=== PATIENT | female | born 1995 | race Caucasian/White ===

== ENCOUNTER 2019-12-12 11:07 | Observation (INO) | payer MEDICAID, SELFPAY ==
[2019-12-12] VITALS (9 sets, daily range): BP systolic 129–146; BP diastolic 83–96; PULSE 82–104; TEMP 36.2; BMI 44.7
--- NOTE | ~2019-12-12 | US_ITS ---
EXAMINATION: US OB >= 14 weeks Fetus DATE: 12/12/2019 13:12 INDICATION: No care. Third trimester. TECHNIQUE: Real-time ultrasound of the pelvis was performed. COMPARISON: None. FINDINGS: There is a single living fetus in vertex presentation. The placenta is anterior. heart rate is 135 beats per minute (bpm). The amniotic fluid volume is subjectively normal. The following biometric data were obtained: Biparietal diameter (BPD): 9.6 cm; head circumference (HC): 33.7 cm; abdominal circumference (AC): 35 .4 cm; femur length (FL): 7.6 cm. These measurements are concordant. Estimated weight is 3688 g +/- 553 g, which correlates with 46th percentile when 12/07/19 is use d as estimated date of delivery. As single measurements, these parameters are each equal to the following estimated gestational ages: BPD: 39 weeks 1 days. HC: 38 weeks 5 days. AC: 39 weeks 2 days. FL: 38 weeks 6 days. estimated gestational age based solely on measurements from this exam is 39 weeks 0 days +/- 2 weeks 5 days. The visualized portions of the spine are normal. The heart is normal. The stomach, kidneys, and bladd er are normal. The cerebral ventricles, cerebellum, cisterna magna, diaphragm, umbilical cord, and co rd insertion were not visualized. IMPRESSION: 1. Single living fetus in vertex presentation. 2. Estimated weight is 3688 g +/- 553 g, which correlates with 46th percentile when 12/07/19 is used as estimated date of delivery. 3. Normal visualized portions of the anatomic survey. Reviewed, dictated and finalized at location A. IMPRESSION: 1. Single living fetus in vertex presentation. 2. Estimated weight is 3688 g +/- 553 g, which correlates with 46th perc entile when 12/07/19 is used as estimated date of delivery. 3. Normal visualized portions of the anatomic survey.
[2019-12-12 12:26] LABS: Basophils Absolute Auto 0.1 K/mm3 (0.0-0.1); Basophils Percent Auto 0.3 % (0.2-1.2); Eosinophils Absolute Auto 0.1 K/mm3 (0-0.3); Eosinophils Percent Auto 0.6 % (0-4.4); Hematocrit 34.2 % (37.0-47.0); Hemoglobin 11.1 g/dL (12.0-15.0); Immature Granulocyte Absolute 0.19 K/mm3 (0.00-0.031); Immature Granulocyte Percent A 1.2 % (0-0.5); Lymphocytes Absolute Auto 2.17 K/mm3 (0.9-3.2); Lymphocytes Percent Auto 13.6 % (18.3-44.2); Mean Corpuscular HGB Conc 32.5 g/dl (32-36); Mean Corpuscular Hemoglobin 26.6 pg (26-34); Monocytes Absolute Auto 0.6 K/mm3 (0.1-0.6); Monocytes Percent Auto 3.9 % (2.6-8.5); Neutrophils Absolute Auto 12.8 K/mm3 (1.3-6.7); Neutrophils Percent Auto 80.4 % (45.5-73.1); Platelet Count Result 308 k/mm3 (150-375); Red Blood Count 4.17 M/mm3 (4.2-5.4); Red Cell Distribution Width 14.5 % (11.5-14.5); White Blood Count 15.9 K/mm3 (4.5-10.0)
[2019-12-12 12:41] LABS: Alanine Aminotransferase 12 U/L (4-35); Albumin Level 3.6 g/dL (3.5-5.1); Alkaline Phosphatase 150 U/L (38-126); Aspartate Amino Transferase 15 U/L (14-36); Bilirubin,Total 0.2 mg/dL (0.2-1.3); Blood Urea Nitrogen 9 mg/dL (7-17); Calcium 9.6 mg/dL (8.4-10.2); Carbon Dioxide 22 mmol/L (22-30); Chloride 103 mmol/L (98-107); Estimated Glomerular Filt Rate > 60; Glucose 120 mg/dL (65-105); Potassium 3.8 mmol/L (3.4-5.0); Sodium 133 mmol/L (137-145); Uric Acid 3.8 mg/dL (2.5-7.5)
--- NOTE | 2019-12-12 13:01 | OBADM ---
This patient, Reny Gerardo, admitted to the OB room Labor/Delivery/Recovery 103 for observation. Patient/family oriented to hospital policies and general routines including ID bracelet, bed and alarms, visiting hours, pain management, procedures, bathroom and other care routines, personal items, smoking policy, room service/diet, and visiting hours. Patient/Family are encouraged to report perceived risks to care and to ask questions if they do not understand what they are told or what they should do.
[2019-12-12 13:05] LABS: Amphetamine Screen Urine Negative (Negative); Barbiturate Screen Urine Negative (Negative); Benzodiazepines Screen Urine Negative (Negative); Cannabinoid Screen Urine Negative (Negative); Cocaine Screen Urine Negative (Negative); Methadone Screen Urine Negative (Negative); Opiate Screen Urine Negative (Negative); Phencyclidine Screen Urine Negative (Negative)
[2019-12-12 13:21] LABS: HIV 1/2 Ab P24 Ag Result Negative (Negative)
[2019-12-12 13:47] LABS: Hepatitis B Surface Antigen Negative (Negative); Rubella IgG Antibody 34.2 IU/ML
[2019-12-13 07:30] LABS: Rapid Plasma Reagin Non-Reactive (NonReactive)
--- NOTE | 2019-12-14 15:32 | PM.OBTRLD ---
OB - Triage/Final Diagnosis Visit Information Reason for evaluation: threatened labor Evaluation Laboratory results: Laboratory Tests 12/12/19 12/12/19 12/12/19 12:18 12:18 12:18 WBC 15.9 H RBC 4.17 L Hgb 11.1 L Hct 34.2 L MCV 82.0 MCH 26.6 MCHC 32.5 RDW 14.5 Plt Count 308 MPV 11.0 H Immature Gran % (Auto) 1.2 H Neut % (Auto) 80.4 H Lymph % (Auto) 13.6 L [place] % (Auto) 3.9 Eos % (Auto) 0.6 Baso % (Auto) 0.3 Lymph # (Auto) 2.17 [place] # (Auto) 0.6 Eos # (Auto) 0.1 Baso # (Auto) 0.1 Abs Immat Gran (auto) 0.19 H Absolute Neuts (auto) 12.8 H Absolute Nucleated RBC 0.0 Nucleated RBC % 0.0 Sodium 133 L Potassium 3.8 Chloride 103 Carbon Dioxide 22 BUN 9 Creatinine 0.60 L Estim Creat Clear Calc Not Reportable Estimated GFR > 60 Glucose 120 H Uric Acid 3.8 Calcium 9.6 Total Bilirubin 0.2 AST 15 ALT 12 Alkaline Phosphatase 150 H Total Protein 7.0 Albumin 3.6 Urine Opiates Screen Urine Methadone Screen Ur Barbiturates Screen Ur Phencyclidine Scrn Ur Amphetamine Screen U Benzodiazepines Scrn Urine Cocaine Screen U Cannabinoids Screen RPR Hep Bs Antigen Negative HIV 1&2 Ab/P24 Ag 4thGn Negative Rubella IgG Antibody 34.2 Blood Type Antibody Screen 12/12/19 12/12/19 12/12/19 12:18 12:18 12:34 WBC RBC Hgb Hct MCV MCH MCHC RDW Plt Count MPV Immature Gran % (Auto) Neut % (Auto) Lymph % (Auto) [place] % (Auto) Eos % (Auto) Baso % (Auto) Lymph # (Auto) [place] # (Auto) Eos # (Auto) Baso # (Auto) Abs Immat Gran (auto) Absolute Neuts (auto) Absolute Nucleated RBC Nucleated RBC % Sodium Potassium Chloride Carbon Dioxide BUN Creatinine Estim Creat Clear Calc Estimated GFR Glucose Uric Acid Calcium Total Bilirubin AST ALT Alkaline Phosphatase Total Protein Albumin Urine Opiates Screen Negative Urine Methadone Screen Negative Ur Barbiturates Screen Negative Ur Phencyclidine Scrn Negative Ur Amphetamine Screen Negative U Benzodiazepines Scrn Negative Urine Cocaine Screen Negative U Cannabinoids Screen Negative RPR Non-reactive Hep Bs Antigen HIV 1&2 Ab/P24 Ag 4thGn Rubella IgG Antibody Blood Type A Negative Antibody Screen Negative
--- NOTE | 2019-12-20 09:05 | PM.IMHP ---
H&P: HPI History of Present Illness Chief complaint: Contractions Narrative: Reny Gerardo is a 24 year old female no PNC. Admitted for induction of labor. LMP/US put patient at 40+ weeks. Review of Systems Review of Systems: All systems reviewed & are unremarkable except as noted in HPI and below PMFSH Past Medical History Medical History Hypertension Family History Family History Father Hypertension Family history of seizure disorder Other Cerebrovascular accident Diabetes mellitus Social History Social History Years smoked: 10 Smoking status: Current every day smoker Second hand tobacco smoke exposure: Yes Alcohol intake: never Substance use: never Gender identity (if verbalized by the patient): Female Spiritual care concerns: No Meds Home Medications and Allergies Allergies Allergy/AdvReac Type Severity Reaction Status Date / Time No Known Allergies Allergy Unverified 05/13/17 12:18 Exam Const: General: no acute distress Resp: Auscultation: clear to auscultation bilaterally Cardio: Rate: regular rate Rhythm: regular rhythm GI: GI Palp: Yes Soft to palpation Other: uterus 39cm. FHT 130-140 Assessment and Plan Assessment and plan (1) Term : Code(s): Z34.90 - Encounter for supervision of normal , unspecified, unspecified trimester Status: Acute (2) No care in current : Code(s): O09.30 - Supervision of with insufficient care, unspecified trimester Status: Acute Additional Plan induction of labor/expect .
== END 2019-12-12 14:50 | disposition home or self-care (01) ==
PROVIDERS: Admitting Provider Obstetrics & Gynecology; Visit Provider Obstetrics & Gynecology
DX: O47.1 False labor at or after 37 completed weeks of gestation (principal); Z3A.40 40 weeks gestation of pregnancy
CPT/HCPCS: 36415; 76805; 80053; 80307; 84550; 85025; 86592; 86703; 86762; 86850; 86900; 86901; 87086; 87088; 87340; G0378; G0379; G0432

== ENCOUNTER 2019-12-14 05:53 | Inpatient (IN) | payer MEDICAID, SELFPAY ==
[2019-12-14] VITALS (76 sets, daily range): BP systolic 91–166; BP diastolic 52–104; PULSE 69–102; RESP 14–16; TEMP 36.6–37; O2SAT 95–100; BMI 44.9
--- NOTE | 2019-12-14 06:40 | LDADM ---
This patient, Reny Gerardo, was admitted to Labor/Delivery/Recovery 104 on 12/14/19 at 05:53. Plans for labor, pain management and were discussed with patient. Patient/family oriented to hospital policies and general routines including ID bracelet, bed and alarms, visiting hours, pain management, procedures, bathroom and other care routines, personal items, smoking policy, room service/diet and guest tray routines, security routines, and visiting hours. Patient/Family are encouraged to report perceived risks to care and to ask questions if they do not understand what they are told or what they should do. See OBIX for further documentation.
[2019-12-14] MEDS: LACTATED RINGERS 1,000 ML 125 ML IV CONT ×3 (06:49→08:59)
[2019-12-14] MEDS: AMPICILLIN 2 GM/NS 100 ML 2 GM/100 ML BAG IVPB (06:49)
[2019-12-14] MEDS: OXYTOCIN 30 UNITS/NS 500 ML 30 UNITS/500 ML BAG IV CONT (06:49)
[2019-12-14 07:03] LABS: Basophils Absolute Auto 0.1 K/mm3 (0.0-0.1); Basophils Percent Auto 0.3 % (0.2-1.2); Eosinophils Absolute Auto 0.2 K/mm3 (0-0.3); Eosinophils Percent Auto 1.2 % (0-4.4); Hematocrit 34.9 % (37.0-47.0); Hemoglobin 11.1 g/dL (12.0-15.0); Immature Granulocyte Absolute 0.09 K/mm3 (0.00-0.031); Immature Granulocyte Percent A 0.6 % (0-0.5); Lymphocytes Absolute Auto 2.59 K/mm3 (0.9-3.2); Lymphocytes Percent Auto 16.6 % (18.3-44.2); Mean Corpuscular HGB Conc 31.8 g/dl (32-36); Mean Corpuscular Hemoglobin 26.5 pg (26-34); Mean Corpuscular Volume 83.3 fl (80-100); Mean Platelet Volume 11.5 fl (7.4-10.4); Monocytes Absolute Auto 1.1 K/mm3 (0.1-0.6); Monocytes Percent Auto 6.9 % (2.6-8.5); Neutrophils Absolute Auto 11.6 K/mm3 (1.3-6.7); Neutrophils Percent Auto 74.4 % (45.5-73.1); Platelet Count Result 312 k/mm3 (150-375); Red Blood Count 4.19 M/mm3 (4.2-5.4); Red Cell Distribution Width 14.7 % (11.5-14.5); White Blood Count 15.6 K/mm3 (4.5-10.0)
--- NOTE | 2019-12-14 09:07 | P.PNAN_ITS ---
Anes - Initial Pre Proc Eval Date/Time: 12/14/19 09:07 Surgeon: Parvez Viera MD Pre Op Diagnosis: Induction Patient Data Age: 24 Gender: F Height: 5 ft 1 in Weight: 108 kg Last Vital Signs Temp 36.7 C 12/14/19 08:59 Pulse 80 12/14/19 09:01 BP 114/52 L 12/14/19 09:01 Pulse Ox 97 12/14/19 09:05 Allergies Allergy/AdvReac Type Severity Reaction Status Date / Time No Known Allergies Allergy Unverified 05/13/17 12:18 Laboratory Tests 12/14/19 06:54 WBC 15.6 K/mm3 H K/mm3 (4.5-10.0) RBC 4.19 M/mm3 L M/mm3 (4.2-5.4) Hgb 11.1 g/dL L g/dL (12.0-15.0) Hct 34.9 % L % (37.0-47.0) MCV 83.3 fl fl (80-100) MCH 26.5 pg pg (26-34) MCHC 31.8 g/dl L g/dl (32-36) RDW 14.7 % H % (11.5-14.5) Plt Count 312 k/mm3 k/mm3 (150-375) MPV 11.5 fl H fl (7.4-10.4) Immature Gran % (Auto) 0.6 % H % (0-0.5) Neut % (Auto) 74.4 % H % (45.5-73.1) Lymph % (Auto) 16.6 % L % (18.3-44.2) [place] % (Auto) 6.9 % % (2.6-8.5) Eos % (Auto) 1.2 % % (0-4.4) Baso % (Auto) 0.3 % % (0.2-1.2) Lymph # (Auto) 2.59 K/mm3 K/mm3 (0.9-3.2) [place] # (Auto) 1.1 K/mm3 H K/mm3 (0.1-0.6) Eos # (Auto) 0.2 K/mm3 K/mm3 (0-0.3) Baso # (Auto) 0.1 K/mm3 K/mm3 (0.0-0.1) Abs Immat Gran (auto) 0.09 K/mm3 H K/mm3 (0.00-0.031) Absolute Neuts (auto) 11.6 K/mm3 H K/mm3 (1.3-6.7) Absolute Nucleated RBC 0.0 K/mm3 K/mm3 (0.0-0.012) Nucleated RBC % 0.0 % % (0.0-0.2) Patient hx anesthesia problems: none Family hx anesthesia problems: none PMFSH Past Medical History Medical History Hypertension Family History Family History Father Hypertension Family history of seizure disorder Other Cerebrovascular accident Diabetes mellitus Social History Social History Years smoked: 10 Smoking status: Current every day smoker Second hand tobacco smoke exposure: Yes Alcohol intake: never Substance use: never Gender identity (if verbalized by the patient): Female Spiritual care concerns: No Anes - Eval Final PreProcedure Day of Procedure 12/14/19 09:07 Patient weight: morbidly obese Heart: regular rate and rhythm Lungs: decreased breath sounds Neurological: alert and oriented ASA classification: III Emergent: no Anesthetic plan: proceed Anesthesia type and monitoring: regional epidural and standard monitoring Informed Consent: The patient's anesthetic plan and its attendant risks and benefits were discussed with the patient/family/POA. Questions were solicited and answers provided to the satisfaction of the patient/family/POA.
[2019-12-14] MEDS: AMPICILLIN 1 GM/NS 50 ML 1 GM/50 ML BAG IVPB (10:49)
--- NOTE | 2019-12-14 12:10 | PM.OBPRVD ---
OB - Delivery Note Procedure Delivery date: 12/14/19 events: No Care Route of delivery: Laceration description: None Specimen: Yes (placenta) Estimated blood loss (mL): 300 Anesthesia type: Epidural Disposition: floor Narrative: Patient prepped and draped in usual manner for this procedure. Maternal expulsive efforts readily delivered vertex which was section of naso and oropharynx. Rest of baby was readily delivered cord was clamped and cut placenta then delivered spontaneously. Uterus was well contracted. Cervix vagina and vulva were inspected no lacerations or tears no significant bleeding. This point procedure was considered terminated. Baby Weeks of gestation at delivery: 40 Infant gender: Female Weight (pounds): 7 Weight (ounces): 15 Placenta delivery description: Spontaneous score one minute: 8 score five minutes: 9
--- NOTE | 2019-12-14 12:13 | WPDHPUPDATE1 ---
History and Physical Update Update Date/Time: 12/14/19 12:13 History and Physical has been reviewed, including an updated exam of the patient. There are NO changes in the patient's condition. Risks, benefits, and alternatives have been discussed and questions answered. Patient agrees to proceed with procedure. The patient has had no significant care the labs have been drawn and ultrasound performed 2 days ago when she was on the obstetrical unit. Will be proceeding with elective induction of labor.
--- NOTE | 2019-12-14 12:14 | WPDOBADMIT ---
Obstetrics - Admit Note Admission Note: record reviewed. No pertinent additions to the history and/or any subsequent changes in the physical findings that are not consistent with the expected course of the were found. Additions to the history and/or subsequent changes in the physical findings follow. None.
[2019-12-14] MEDS: DOCUSATE SODIUM 100 MG CAPSULE PO (18:39)
[2019-12-14] MEDS: IBUPROFEN 600 MG TABLET PO (18:39)
[2019-12-15] MEDS: IBUPROFEN 600 MG TABLET PO ×2 (04:43→17:02)
[2019-12-15 05:30] LABS: Hematocrit 33.4 % (37.0-47.0); Hemoglobin 10.4 g/dL (12.0-15.0)
[2019-12-15 08:00] VITALS: BP 134/82; PULSE 69; RESP 18; TEMP 36.2; O2SAT 100
--- NOTE | 2019-12-15 09:40 | PM.OBDSVD ---
OB - DS: Summary OB Procedures : None OB Procedures Intrapartum: Spontaneous Vag Delivery OB Procedures: : None Time Spent with Patient Time attestation: Total time spent providing and/or coordinating discharge services: DS: Data Data Completed and Pending Labs on day of discharge: Labs from last 24 hours 12/15/19 12/15/19 04:49 04:49 Hgb 10.4 L Hct 33.4 L Blood Type A Negative Antibody Screen Negative Screen Negative Baby's Blood Type A pos Baby's BRAD Negative Doses of RhIg Required 1 Discharge Plan Discharge Discharging Clinician: Parvez Viera Patient Disposition: Home, Self-Care Activity: as tolerated Diet: as tolerated Patient Instructions: Antibiotic Form Stand Alone Forms: General Discharge Information Follow-up/Referrals: Parvez Viera MD [Physician] - 3 Weeks Date of admission: 12/14/19 05:53 Primary Care Provider: UNKNOWN,DOCTOR Admitting Provider: Parvez Viera Attending physician on admission: Parvez Viera
--- NOTE | 2019-12-15 10:50 | WPDANLDPN2 ---
Anes-Prog Note L&D Date/Time: 12/15/19 10:50 Comfortable throughout: labor and delivery Neuraxial method: epidural Epidural/Spinal procedure site: clean & non-tender Neuro status: Neuro function grossly intact. Cardiovascular status: normal Respiratory status: normal Airway patency: baseline Mental status: baseline Post-Op hydration status: normal Vital Signs: Last Vital Signs Temp 36.2 C L 12/15/19 08:00 Pulse 69 12/15/19 08:00 Resp 18 12/15/19 08:00 BP 134/82 12/15/19 08:00 Pulse Ox 100 12/15/19 08:00 Post-procedural complaints: none Patient feedback: Patient satisfied with anesthetic care.
--- NOTE | 2019-12-15 10:52 | PCCCNOTE ---
Per Care Coordination. Spoke with pt. over the phone to discuss discharge planning. Pt.'s current discharge plan is to return home with baby and FOB(Jitendra Frost). Pt. lives with FOB and her other two children who she has custody of. Pt. states that FOB is supportive and that they have no previous DCFS cases or any current cases open. Pt. states that she has everything she needs to safely bring baby home. She is not current with WIC but has been given resources regarding WIC. Pt. states that she has had one visit, but nursing states she has had no care. Pt. states that this is due to lack of insurance. She continues by stating that she currently has insurance and has received her insurance card. She states that she is current with [employer]. Pt. denies any discharge needs at this time. She confirms that she has a car seat and will bring it into the hospital for nursing to examine. No further need for Care Coordination services at this time.
[2019-12-15] MEDS: DOCUSATE SODIUM 100 MG CAPSULE PO (17:02)
[2019-12-15] MEDS: RHO(D) IMMUNE GLOBULIN 300 MCG SYRINGE IM (17:44)
[2019-12-15 19:30] VITALS: BP 125/75; PULSE 68; RESP 16; TEMP 36.7; O2SAT 100
[2019-12-16] MEDS: IBUPROFEN 600 MG TABLET PO (04:16)
[2019-12-16] MEDS: ACETAMINOPHEN 325 MG TABLET 650 MG PO (07:54)
[2019-12-16] MEDS: MULTIVIT/MIN/PREN/FOL AC/IRON TABLET 1 TAB PO (07:54)
[2019-12-16 08:50] VITALS: BP 138/83; PULSE 68; RESP 18; TEMP 37.3; O2SAT 99
[2019-12-19 11:14] VITALS: BP 131/75; PULSE 84; RESP 20; TEMP 36.7
--- NOTE | 2019-12-20 09:01 | P.DS_ITS ---
DS: Diagnosis Admitting Diagnosis Admitting Diagnosis: Encounter for supervision of normal , unspecified, third trimester OB - DS: Summary OB Procedures : None OB Procedures Intrapartum: Spontaneous Vag Delivery OB Procedures: : None Time Spent with Patient Time attestation: Total time spent providing and/or coordinating discharge services: DS: Data Data Completed and Pending Completed studies during hospitalization: Pending at discharge 12/15/19 11:30 Surgical [PTH] Routine Discharge Plan Discharge Consulting providers: Liu Link Discharging Clinician: Parvez Viera Patient Disposition: Home, Self-Care Activity: as tolerated Diet: as tolerated Discharge Instructions: Education: Mom and Baby Guide Given to: Mother Follow-Up: Call your delivering provider's office for an appointment to be seen in: 3 weeks Mom and baby should come to the [facility] for the follow-up appointment. Appointment Date/Time: December 19, 2019 at 11:00 am What to expect at your follow-up visit: Physical Assessment Call [phone] if you are unable to keep your appointment time. BREAST CARE: 1. Wear a snug supportive bra. 2. For engorgement discomfort: Bottle Feeding: A. May apply ice packs EPISIOTOMY/PERINEAL CARE: 1. Until bleeding stops, use your mariana bottle after urinating 2. Change your pad frequently throughout the day 3. You may take sitz baths several times a day (fill your bathtub with warm water and soak for 20 minutes.) Do NOT bathe in the water 4. No tub baths until seen by your physician - You may shower ACTIVITY: 1. Rest as much as possible. 2. Do not exercise or lift anything heavier than your baby (such as laundry or other children.) 3. Avoid stairs or driving as much as possible. 4. Do not put anything into the vagina. No douching, tampons, or sexual activity until seen by physician. NOTIFY PHYSICIAN IF YOU HAVE ANY QUESTIONS OR IF ANY OF THE FOLLOWING SYMPTOMS OCCUR: 1. If your episiotomy or incision becomes red, swollen, or more painful than what you have experienced in the hospital. 2. If your vaginal bleeding becomes foul smelling. 3. If your vaginal bleeding becomes more heavy than a period or if your bleeding changes from pink to bright red. However, you may pass an occasional walnut- sized clot once or twice for the first week . 4. If you experience a sharp, shooting pain in you calves. 5. If you discover a hard, reddened area on your breast or if you experience flu-like symptoms. DIET: 1. Eat regular, well-balanced meals. 2. Drink plenty of fluids daily. If , drink to thirst. Stand Alone Forms: General Discharge Information Follow-up/Referrals: Parvez Viera MD [Physician] - 3 Weeks Date of admission: 12/14/19 05:53 Primary Care Provider: UNKNOWN,DOCTOR Admitting Provider: Parvez Viera Discharge Date/Time: 12/16/19 13:35 Attending physician on admission: Parvez Viera
== END 2019-12-16 13:35 | disposition home or self-care (01) | DRG 560 ==
LOC: ANHLDR 05:55 → ANHOB2 14:53
PROVIDERS: Admitting Provider Obstetrics & Gynecology; Visit Provider Obstetrics & Gynecology
DX: O10.92 Unspecified pre-existing hypertension complicating childbirth (principal); Z37.0 Single live birth; Z3A.39 39 weeks gestation of pregnancy; O99.214 Obesity complicating childbirth; E66.01 Morbid (severe) obesity due to excess calories; O99.334 Smoking (tobacco) complicating childbirth; F17.210 Nicotine dependence, cigarettes, uncomplicated
CPT/HCPCS: 36415; 85014; 85018; 85025; 85461; 88307; 90384; A9270; J0290; J2590; J2790; J2795; J3010; J7120

== ENCOUNTER 2024-08-23 09:54 | Observation (INO) | payer OTHER, SELFPAY ==
--- NOTE | ~2024-08-23 | US_ITS ---
COMPLETE AND LIMITED MATERNAL ULTRASOUND (Duplex and color flow interrogation techniques used f or this exam.) Ordering provider: Judith Hussein History: . abd pain, early US for dating . Comparison: None Findings: BIOMETRY: BPD: 9.1 cm (30 weeks 5 days) HC: 33.5 cm (38 weeks 2 days) AC: 36.3 cm (40 weeks 2 days) FL: 7.3 cm (37 weeks 3 days) Number of fetuses: 1. lie: longitudinal. Spine to maternal left. Presentation: Vertex. heart rate: 153 bpm. Placenta: Anterior left. Distance from cervix: Out of range. Amniotic fluid index: Low measuring 5.5 cm. Fifth percentile is 7.3 cm. 95th percentile is 23.9 cm. L argest pocket measures 3.7 cm. Stomach: Normal. Bladder: Normal. 3 vessel cord: Normal. Cervix measures 3 cm. Estimated weight is 3641 gm. CI: 75.36 FL/BPD: 18.8 HC/AC: 0.92 FL/AC: 20.15 Impression: Single live fetus of 38 weeks and 1 day. LACI is September 05, 2024. Reviewed, dictated and finalized at location A. 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 LACI is September 05, 2024.
[2024-08-23 08:46] VITALS: BP 146/73; PULSE 76; RESP 20; TEMP 36.4; O2SAT 100
[2024-08-23 09:00] LABS: BEDSIDEPREGUCG Positive (Negative)
[2024-08-23 09:44] LABS: Basophils Percent Auto 0.4 % (0.2-1.2); Eosinophils Absolute Auto 0.1 K/mm3 (0-0.3); Eosinophils Percent Auto 0.9 % (0-4.4); Hematocrit 34.8 % (37.0-47.0); Hemoglobin 11.2 g/dL (12.0-15.0); Immature Granulocyte Absolute 0.04 K/mm3 (0.00-0.031); Immature Granulocyte Percent A 0.4 % (0-0.5); Lymphocytes Absolute Auto 2.21 K/mm3 (0.9-3.2); Lymphocytes Percent Auto 19.8 % (18.3-44.2); Mean Corpuscular HGB Conc 32.2 g/dl (32-36); Mean Corpuscular Hemoglobin 26.4 pg (26-34); Mean Corpuscular Volume 82.1 fl (80-100); Monocytes Absolute Auto 0.6 K/mm3 (0.1-0.6); Monocytes Percent Auto 5.3 % (2.6-8.5); Neutrophils Absolute Auto 8.2 K/mm3 (1.3-6.7); Neutrophils Percent Auto 73.2 % (45.5-73.1); Platelet Count Result 317 k/mm3 (150-375); Red Blood Count 4.24 M/mm3 (4.2-5.4); Red Cell Distribution Width 15.8 % (11.5-14.5); White Blood Count 11.2 K/mm3 (4.5-10.0)
[2024-08-23 09:53] LABS: Add Urine Microscopic? YES; Appearance Urine Clear (Clear); Bacteria Urine Rare /hpf; Bilirubin Urine Negative (Negative); Blood Urine Negative (Negative); Color Urine Yellow (Yellow); Glucose Urine UA Negative (Negative); Ketones Urine Negative (Negative); Leukocyte Esterase Ur Trace LEU/UL (Negative); Nitrate Urine Negative (Negative); Protein Urine 1+ mg/dL (Negative); RBC Urine 0-2 /hpf (0-2); Squamous Epithelial Cell Urine None Seen /hpf (Few); WBC Urine 0-5 /hpf (0-3); pH Urine 7.5 (5.0-9.0)
[2024-08-23 09:56] LABS: Alanine Aminotransferase 19 U/L (6-35); Albumin Level 3.6 g/dL (3.5-5.1); Alkaline Phosphatase 226 U/L (38-126); Anion Gap 3 mmol/L (4-12); Aspartate Amino Transferase 25 U/L (14-36); Bilirubin,Total 0.6 mg/dL (0.2-1.3); Blood Urea Nitrogen 7 mg/dL (7-17); Calcium 8.8 mg/dL (8.4-10.2); Carbon Dioxide 23 mmol/L (22-30); Chloride 107 mmol/L (98-107); Estimated CRCL calculation 128 ml/min; Estimated Glomerular Filt Rate > 60; Glucose 77 mg/dL (65-110); Lipase 99 U/L (23-300); Potassium 4.1 mmol/L (3.4-5.0); Sodium 133 mmol/L (137-145)
--- NOTE | 2024-08-23 09:58 | ED_ITS ---
HPI - Abdominal Pain General Chief Complaint: Abdominal Pain Stated Complaint: , abd pain Time Seen by Provider: 08/23/24 09:32 Source: patient Mode of arrival: ambulatory Limitations: no limitations History of Present Illness HPI narrative: This is a 28-year-old female that presents to the emergency department for pelvic pressure. Reports this has been ongoing over the last couple of days. She eventually reports that she is currently . She is unsure how far along she is. She does not have any insurance, so has not had any care. She has been feeling baby move for several months. This is not her 1st . Saw Dr. Lang for previous pregnancies. Denies vaginal bleeding or leakage of fluids. Related Data Allergies Allergy/AdvReac Type Severity Reaction Status Date / Time No Known Allergies Allergy Verified 08/23/24 08:50 Review of Systems 2 Review of Systems: CONSTITUTIONAL: Denies fever GASTROINTESTINAL: Reports pelvic pain All systems reviewed & are unremarkable except as noted in HPI and below PMFSH Past Medical History Medical History (Updated 08/23/24 @ 10:02 by Ann Orozco PA-C) Hypertension Family History Family History Father Hypertension Family history of seizure disorder Other Cerebrovascular accident Diabetes mellitus Social History Social History (Updated 08/23/24 @ 10:01 by Ann Orozco PA-C) Years smoked: 10 Smoking status: Current every day smoker Second hand tobacco smoke exposure: Yes Alcohol intake: never Substance use: current Substance use type: marijuana Gender identity (if verbalized by the patient): Female Spiritual care concerns: No Exam 2 Narrative: GENERAL: Well-appearing, well-nourished, and in no acute distress. HEAD: Normocephalic, atraumatic. EYES: EOMI. CHEST: Clear to auscultation. No respiratory distress. No wheezes rales or rhonchi HEART: Regular rate and rhythm. No murmur heard. Normal peripheral pulses. ABDOMEN: Gravid, nontender, normal active bowel sounds. EXTREMITIES: Normal range of motion. No edema. SKIN: Warm, dry, no rash. NEURO: No focal deficits. Alert and oriented x3. PSYCH: Normal mood and affect Procedures Other Procedure Procedure 1: Other Procedure: Bedside ultrasound shows likely near full term fetus with positive cardiac motion and activity Course Course Emergency Course: Patient will be transported to OB for further evaluation Vital Signs Vital signs: Vital Signs Temperature 97.5 F L 08/23/24 08:46 Pulse Rate 76 08/23/24 08:46 Respiratory Rate 20 08/23/24 08:46 Blood Pressure 146/73 H 08/23/24 08:46 Pulse Oximetry 100 08/23/24 08:46 Oxygen Delivery Room Air 08/23/24 08:46 Temperature 97.5 F L 08/23/24 08:46 Pulse Rate 76 08/23/24 08:46 Respiratory Rate 20 08/23/24 08:46 Blood Pressure 146/73 H 08/23/24 08:46 Pulse Oximetry 100 08/23/24 08:46 Oxygen Delivery Room Air 08/23/24 08:46 MDM - Abdominal Pain MDM Narrative Medical decision making narrative: Patient presents to emergency department for pelvic pressure. Later reported that she is currently , has had no care. Unsure how far along she is. Bedside ultrasound shows likely near full term fetus with positive cardiac motion and activity. Will be transported to OB for further evaluation and management Lab Data Attestation: I reviewed the patient's lab results. 08/23/24 09:18 08/23/24 09:18 Labs: Lab Results 08/23/24 08/23/24 Range/Units 08:57 09:18 WBC 11.2 H (4.5-10.0) K/mm3 RBC 4.24 (4.2-5.4) M/mm3 Hgb 11.2 L (12.0-15.0) g/dL Hct 34.8 L (37.0-47.0) % MCV 82.1 (80-100) fl MCH 26.4 (26-34) pg MCHC 32.2 (32-36) g/dl RDW 15.8 H (11.5-14.5) % Plt Count 317 (150-375) k/mm3 MPV 11.0 H (7.4-10.4) fl Immature Gran % (Auto) 0.4 (0-0.5) % Neut % (Auto) 73.2 H (45.5-73.1) % Lymph % (Auto) 19.8 (18.3-44.2) % [place] % (Auto) 5.3 (2.6-8.5) % Eos % (Auto) 0.9 (0-4.4) % Baso % (Auto) 0.4 (0.2-1.2) % Lymph # (Auto) 2.21 (0.9-3.2) K/mm3 [place] # (Auto) 0.6 (0.1-0.6) K/mm3 Eos # (Auto) 0.1 (0-0.3) K/mm3 Baso # (Auto) 0.0 (0.0-0.1) K/mm3 Abs Immat Gran (auto) 0.04 H (0.00-0.031) K/mm3 Absolute Neuts (auto) 8.2 H (1.3-6.7) K/mm3 Absolute Nucleated RBC 0.000 (0.0-0.012) K/mm3 Nucleated RBC % 0.0 (0.0-0.2) % Sodium 133 L (137-145) mmol/L Potassium 4.1 (3.4-5.0) mmol/L Chloride 107 (98-107) mmol/L Carbon Dioxide 23 (22-30) mmol/L Anion Gap 3 L (4-12) mmol/L BUN 7 (7-17) mg/dL Creatinine 0.57 L (0.7-1.0) mg/dL Estim Creat Clear Calc 128 ml/min Estimated GFR > 60 (59 - ) Glucose 77 (65-110) mg/dL Calcium 8.8 (8.4-10.2) mg/dL Total Bilirubin 0.6 (0.2-1.3) mg/dL AST 25 (14-36) U/L ALT 19 (6-35) U/L Alkaline Phosphatase 226 H (38-126) U/L Total Protein 7.0 (6.3-8.2) g/dL Albumin 3.6 (3.5-5.1) g/dL Lipase 99 (23-300) U/L Beta HCG, Quant Pending Urine Color Pending Urine Appearance Pending Urine pH Pending Ur Specific [place] Pending Urine Protein Pending Urine Glucose (UA) Pending Urine Ketones Pending Ur Blood (Man) Pending Urine Nitrate Pending Urine Bilirubin Pending Urine Urobilinogen Pending Leukocyte Esterase Rfl Pending POC Urine HCG, Qual Positive (Negative) Critical Care Time Critical Care Time Critical Care Time: No Discharge Plan Discharge Clinical Impression: No care in current Qualifiers: Trimester: third trimester Qualified Code(s): O09.33 - Supervision of with insufficient care, third trimester Patient Language: Maltese Follow-up/Referrals: PHYSICIAN,LIVING NURSE [Primary Care Provider] -
[2024-08-23 10:31] VITALS: BMI 37.9
--- NOTE | 2024-08-23 10:35 | OBADM ---
This patient, Reny Gerardo, admitted to the OB room 115 for observation. Patient/family oriented to hospital policies and general routines including ID bracelet, bed and alarms, visiting hours, pain management, procedures, bathroom and other care routines, personal items, smoking policy, room service/diet, and visiting hours. Patient/Family are encouraged to report perceived risks to care and to ask questions if they do not understand what they are told or what they should do.
[2024-08-23 10:45] VITALS: BP 133/81; PULSE 65
[2024-08-23 11:03] VITALS: BP 149/89; PULSE 72
[2024-08-23 11:16] VITALS: BP 144/90; PULSE 72
[2024-08-23 11:31] VITALS: BP 132/78; PULSE 76
[2024-08-23 13:40] LABS: Amphetamine Screen Urine Negative (Negative); Barbiturate Screen Urine Negative (Negative); Benzodiazepines Screen Urine Negative (Negative); Cannabinoid Screen Urine Positive (Negative); Cocaine Screen Urine Negative (Negative); Methadone Screen Urine Negative (Negative); Opiate Screen Urine Negative (Negative); Phencyclidine Screen Urine Negative (Negative)
[2024-08-23 14:01] LABS: Hepatitis B Surface Antigen Negative (Negative)
[2024-08-23 14:17] LABS: HIV 1/2 Ab P24 Ag Result Negative (Negative)
[2024-08-23 21:43] LABS: Rapid Plasma Reagin Non-Reactive (NonReactive)
--- NOTE | 2024-08-24 06:15 | P.PNOB_ITS ---
OB - Triage/Final Diagnosis Visit Information Reason for evaluation: threatened labor Comments/Additional reasons for admission: I have assessed the risk for this patient, Reny Gerardo, and determined that she would benefit from observation care. Evaluation Laboratory results: Laboratory Tests 08/23/24 08/23/24 08/23/24 08:57 09:18 12:54 WBC 11.2 H RBC 4.24 Hgb 11.2 L Hct 34.8 L MCV 82.1 MCH 26.4 MCHC 32.2 RDW 15.8 H Plt Count 317 MPV 11.0 H Immature Gran % (Auto) 0.4 Neut % (Auto) 73.2 H Lymph % (Auto) 19.8 [place] % (Auto) 5.3 Eos % (Auto) 0.9 Baso % (Auto) 0.4 Lymph # (Auto) 2.21 [place] # (Auto) 0.6 Eos # (Auto) 0.1 Baso # (Auto) 0.0 Abs Immat Gran (auto) 0.04 H Absolute Neuts (auto) 8.2 H Absolute Nucleated RBC 0.000 Nucleated RBC % 0.0 Sodium 133 L Potassium 4.1 Chloride 107 Carbon Dioxide 23 Anion Gap 3 L BUN 7 Creatinine 0.57 L Estim Creat Clear Calc 128 Estimated GFR > 60 Glucose 77 Calcium 8.8 Total Bilirubin 0.6 AST 25 ALT 19 Alkaline Phosphatase 226 H Total Protein 7.0 Albumin 3.6 Lipase 99 Beta HCG, Quant 28539.00 Urine Color Yellow Urine Appearance Clear Urine pH 7.5 Ur Specific [place] 1.010 Urine Protein 1+ H Urine Glucose (UA) Negative Urine Ketones Negative Ur Blood (Man) Negative Urine Nitrate Negative Urine Bilirubin Negative Urine Urobilinogen 1.0 Leukocyte Esterase Rfl Trace H Urine RBC 0-2 Urine WBC 0-5 Ur Squamous Epith Cells None seen Urine Bacteria Rare Urine Casts 3-5 POC Urine HCG, Qual Positive Urine Opiates Screen Urine Methadone Screen Ur Barbiturates Screen Ur Phencyclidine Scrn Ur Amphetamine Screen U Benzodiazepines Scrn Urine Cocaine Screen U Cannabinoids Screen RPR Hep Bs Antigen Negative HIV 1&2 Ab/P24 Ag 4thGn Negative Rubella IgG Antibody 26.0 Blood Type Antibody Screen 08/23/24 12:55 WBC RBC Hgb Hct MCV MCH MCHC RDW Plt Count MPV Immature Gran % (Auto) Neut % (Auto) Lymph % (Auto) [place] % (Auto) Eos % (Auto) Baso % (Auto) Lymph # (Auto) [place] # (Auto) Eos # (Auto) Baso # (Auto) Abs Immat Gran (auto) Absolute Neuts (auto) Absolute Nucleated RBC Nucleated RBC % Sodium Potassium Chloride Carbon Dioxide Anion Gap BUN Creatinine Estim Creat Clear Calc Estimated GFR Glucose Calcium Total Bilirubin AST ALT Alkaline Phosphatase Total Protein Albumin Lipase Beta HCG, Quant Urine Color Urine Appearance Urine pH Ur Specific [place] Urine Protein Urine Glucose (UA) Urine Ketones Ur Blood (Man) Urine Nitrate Urine Bilirubin Urine Urobilinogen Leukocyte Esterase Rfl Urine RBC Urine WBC Ur Squamous Epith Cells Urine Bacteria Urine Casts POC Urine HCG, Qual Urine Opiates Screen Negative Urine Methadone Screen Negative Ur Barbiturates Screen Negative Ur Phencyclidine Scrn Negative Ur Amphetamine Screen Negative U Benzodiazepines Scrn Negative Urine Cocaine Screen Negative U Cannabinoids Screen Positive A RPR Non-reactive Hep Bs Antigen HIV 1&2 Ab/P24 Ag 4thGn Rubella IgG Antibody Blood Type A Negative Antibody Screen Negative Vital signs: Vital Signs - 24 hr 08/23/24 08:46 08/23/24 10:31 08/23/24 10:45 Temperature 97.5 F L Pulse Rate 76 65 Respiratory Rate 20 Blood Pressure 146/73 H 133/81 Pulse Oximetry 100 Oxygen Delivery Room Air Room Air 08/23/24 11:03 08/23/24 11:16 08/23/24 11:31 Temperature Pulse Rate 72 72 76 Respiratory Rate Blood Pressure 149/89 H 144/90 H 132/78 Pulse Oximetry Oxygen Delivery
== END 2024-08-23 13:10 | disposition home or self-care (01) ==
LOC: ANHOBPP 12:44 → ANHLDR 13:55
PROVIDERS: Student in an Organized Health Care Education/Training Program; Admitting Provider Obstetrics & Gynecology; Visit Provider Obstetrics & Gynecology
DX: O47.1 False labor at or after 37 completed weeks of gestation (principal); O09.33 Supervision of pregnancy with insufficient antenatal care, third trimester; O10.913 Unspecified pre-existing hypertension complicating pregnancy, third trimester; O99.333 Smoking (tobacco) complicating pregnancy, third trimester; F17.200 Nicotine dependence, unspecified, uncomplicated; Z3A.38 38 weeks gestation of pregnancy
CPT/HCPCS: 36415; 76815; 80053; 80307; 81001; 81025; 83690; 84702; 85025; 86592; 86703; 86762; 86850; 86900; 86901; 87340; 99285; G0378; G0379; G0432

== ENCOUNTER 2024-08-25 16:18 | Outpatient (RCR) | payer OTHER, SELFPAY ==
--- NOTE | ~2024-08-25 | US_ITS ---
EXAMINATION: US OB limited w BPP DATE: 08/25/2024 17:46 POWDER LOADER INDICATION: oligohydramnios suspected TECHNIQUE: Real-time transabdominal obstetric ultrasound. FINDINGS: Single intrauterine gestation in vertex presentation. The placenta is anterior cardiac activity and movement is noted with a heart rate of 138 - 142 beats per mi nute. Biophysical profile: breathin of 2 movement: 2 of 2 tone: 2 of 2 Amniotic fluid pocket: 2 of 2 (NATALIE: 6.92 with normal values ranging from 6.5-26.3). The deepest vertical pocket measures 4.56 cm. Total score: 8 of 8 IMPRESSION: 1. Single intrauterine gestation in vertex presentation. 2: Total biophysical profile score of 8 out of 8. Reviewed, dictated and finalized at location A. ER LOADER
[2024-08-25 17:38] VITALS: BP 116/67; PULSE 86
== END 2024-10-14 16:30 | disposition home or self-care (01) ==
LOC: ANHOBOP 16:18
PROVIDERS: Visit Provider Obstetrics & Gynecology
DX: O41.03X0 Oligohydramnios, third trimester, not applicable or unspecified (principal); Z3A.38 38 weeks gestation of pregnancy
CPT/HCPCS: 59025; 76815; 76819

== ENCOUNTER 2024-08-28 05:53 | Inpatient (IN) | payer OTHER, SELFPAY ==
[2024-08-28] VITALS (117 sets, daily range): BP systolic 99–176; BP diastolic 40–94; PULSE 36–91; RESP 16; TEMP 36.2–37; O2SAT 94–100; BMI 37.9
--- NOTE | 2024-08-28 05:53 | LDADM ---
This patient, Reny Gerardo, was admitted to Labor/Delivery/Recovery 106 on 08/28/24 at 05:53. Plans for labor, pain management and were discussed with patient. Patient/family oriented to hospital policies and general routines including ID bracelet, bed and alarms, visiting hours, pain management, procedures, bathroom and other care routines, personal items, smoking policy, room service/diet and guest tray routines, security routines, and visiting hours. Patient/Family are encouraged to report perceived risks to care and to ask questions if they do not understand what they are told or what they should do. See OBIX for further documentation.
[2024-08-28 06:30] LABS: Basophils Absolute Auto 0.1 K/mm3 (0.0-0.1); Basophils Percent Auto 0.4 % (0.2-1.2); Eosinophils Absolute Auto 0.2 K/mm3 (0-0.3); Eosinophils Percent Auto 1.2 % (0-4.4); Hematocrit 34.4 % (37.0-47.0); Hemoglobin 11.2 g/dL (12.0-15.0); Immature Granulocyte Absolute 0.07 K/mm3 (0.00-0.031); Immature Granulocyte Percent A 0.6 % (0-0.5); Lymphocytes Absolute Auto 2.39 K/mm3 (0.9-3.2); Lymphocytes Percent Auto 19.9 % (18.3-44.2); Mean Corpuscular HGB Conc 32.6 g/dl (32-36); Mean Corpuscular Hemoglobin 26.9 pg (26-34); Mean Corpuscular Volume 82.7 fl (80-100); Mean Platelet Volume 11.1 fl (7.4-10.4); Monocytes Absolute Auto 0.7 K/mm3 (0.1-0.6); Monocytes Percent Auto 5.9 % (2.6-8.5); Neutrophils Absolute Auto 8.6 K/mm3 (1.3-6.7); Platelet Count Result 301 k/mm3 (150-375); Red Blood Count 4.16 M/mm3 (4.2-5.4); Red Cell Distribution Width 16.1 % (11.5-14.5)
[2024-08-28] MEDS: LACTATED RINGERS 1,000 ML 125 ML IV CONT ×2 (06:38→09:36)
[2024-08-28] MEDS: OXYTOCIN 30 UNITS/NS 500 ML 30 UNITS/500 ML BAG IV CONT (06:39)
[2024-08-28] MEDS: AMPICILLIN 2 GM/NS 100 ML 2 GM/100 ML BAG IVPB (06:39)
--- NOTE | 2024-08-28 07:00 | PC.NURSE ---
pt states that she is placing this baby up for adoption. Pt states that the adoption process has been taken care of. 0716: Alyssa from Adoption agency called and stated that the pt does not have anything arranged and will be by around 1100 am to meet and discuss with the pt.
--- NOTE | 2024-08-28 07:10 | P.PNAN_ITS ---
Anes - Eval Pre Procedure Procedure: labor epidural Date/Time: 08/28/24 07:10 Surgeon: ulisses Preop Diagnosis: pain during labor Pre Op Diagnosis: Leaking & Contractions Patient Data Age: 28 Gender: F Height: 1.55 m Weight: 91 kg Last Vital Signs Temp 36.6 C 08/28/24 06:58 Pulse 72 08/28/24 07:00 BP 136/78 08/28/24 07:00 Allergies Allergy/AdvReac Type Severity Reaction Status Date / Time No Known Allergies Allergy Verified 08/26/24 08:12 Home Medications ?Medication ?Instructions ?Recorded ?Confirmed ?Type No Home Medications 08/23/24 08/26/24 History Laboratory Tests 08/28/24 06:14 WBC 12.0 H K/mm3 (4.5-10.0) RBC 4.16 L M/mm3 (4.2-5.4) Hgb 11.2 L g/dL (12.0-15.0) Hct 34.4 L % (37.0-47.0) MCV 82.7 fl (80-100) MCH 26.9 pg (26-34) MCHC 32.6 g/dl (32-36) RDW 16.1 H % (11.5-14.5) Plt Count 301 k/mm3 (150-375) MPV 11.1 H fl (7.4-10.4) Immature Gran % (Auto) 0.6 H % (0-0.5) Neut % (Auto) 72.0 % (45.5-73.1) Lymph % (Auto) 19.9 % (18.3-44.2) [place] % (Auto) 5.9 % (2.6-8.5) Eos % (Auto) 1.2 % (0-4.4) Baso % (Auto) 0.4 % (0.2-1.2) Lymph # (Auto) 2.39 K/mm3 (0.9-3.2) [place] # (Auto) 0.7 H K/mm3 (0.1-0.6) Eos # (Auto) 0.2 K/mm3 (0-0.3) Baso # (Auto) 0.1 K/mm3 (0.0-0.1) Abs Immat Gran (auto) 0.07 H K/mm3 (0.00-0.031) Absolute Neuts (auto) 8.6 H K/mm3 (1.3-6.7) Absolute Nucleated RBC 0.000 K/mm3 (0.0-0.012) Nucleated RBC % 0.0 % (0.0-0.2) RPR Pending HIV 1&2 Ab/P24 Ag 4thGn Pending Patient hx anesthesia problems: none Family hx anesthesia problems: none Results Review: All pre-operative results and documents have been reviewed as part of the pre- operative evaluation. [facility] Past Medical History Medical History (Updated 08/28/24 @ 07:11 by Liz Ceballos CRNA) Seizures Scoliosis Hypertension Family History Family History Father Hypertension Family history of seizure disorder Other Cerebrovascular accident Diabetes mellitus Social History Social History (Updated 08/26/24 @ 08:14 by JULIOCESAR Schroeder) Years smoked: 4 Smoking status: Current every day smoker Tobacco type: cigarettes Second hand tobacco smoke exposure: Yes Alcohol intake: never Substance use: current Substance use type: marijuana Other substance usage details: 1 time a week Do You Feel Safe in your Home?: Yes Lack of Transportation: YES Lack of Food: Never True Current Housing: I Have Housing Concerned About Future Housing: No Difficulty Paying Gas/Electric Bills: No Difficulty Paying for Meds: No Currently Unemployed: No Education: High School Diploma/GED Difficulty w/ Childcare or Family Care: No Additional living arrangements comments: single Occupation/Education: other 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
--- NOTE | 2024-08-28 07:24 | PC.NURSE ---
during discussion with this nursery nurse pt states she recently had to quit her job and there are times when she doesn't have enough food. does not want to take advantage of the fact that she is having a baby, especially since she plans to give baby up for adoption. wants to be able to see baby after delivery, but is not sure how much contact she would like. discussed with pt that we will follow any wishes she would like during her stay and that she may change her mind about any contact at any time during her stay. pt states she has contacted [employer], ball warper tender Alyssa García, for adoption services.
[2024-08-28 07:39] LABS: HIV 1/2 Ab P24 Ag Result Negative (Negative)
[2024-08-28 07:59] LABS: OBXCEM ROM Plus Positive (Negative)
[2024-08-28 08:54] LABS: Rapid Plasma Reagin Non-Reactive (NonReactive)
--- NOTE | 2024-08-28 09:57 | WPDANLDPN2 ---
Anes-Prog Note L&D Date/Time: 08/28/24 09:57 Comfortable throughout: labor and delivery Neuraxial method: epidural Epidural/Spinal procedure site: clean & non-tender Neuro status: Neuro function grossly intact. Cardiovascular status: normal Respiratory status: normal Airway patency: baseline Mental status: baseline Post-Op hydration status: normal Vital Signs: Last Vital Signs Temp 97.2 F L 08/28/24 09:39 Pulse 57 L 08/28/24 09:54 BP 121/67 08/28/24 09:54 Pulse Ox 98 08/28/24 09:53 Pain score (VAS): 0 I/O: Intake & Output 08/27/24 08/28/24 08/28/24 23:59 07:59 15:59 Intake Total 370.8 Balance 370.8 Patient feedback: Patient satisfied with anesthetic care.
[2024-08-28] MEDS: AMPICILLIN 1 GM/NS 50 ML 1 GM/50 ML BAG IVPB (10:34)
--- NOTE | 2024-08-28 12:17 | WPDHPUPDATE1 ---
History and Physical Update Update Date/Time: 08/28/24 12:17 History and Physical has been reviewed, including an updated exam of the patient. There are NO changes in the patient's condition. Risks, benefits, and alternatives have been discussed and questions answered. Patient agrees to proceed with procedure.
--- NOTE | 2024-08-28 12:45 | PM.OBPRVD ---
OB - Vaginal Delivery Note Procedure Delivery date: 08/28/24 Events: No Care Induction method: None Delivery augmentation: Pitocin Delivery monitor: External FHT and Internal Uterine Route of delivery: Episiotomy description: None Laceration Description: None Specimen: Yes Quantitative Blood Loss (ml): 300 Anesthesia type: Epidural Disposition: Floor Complications: No immediate complications Narrative: Patient prepped and draped in the usual manner. Maternal expulsive efforts readily delivered vertex, nuchal cord was reduced thought difficulty. Rest of baby was delivered without difficulty, cord clamped and cut and placenta delivered spontaneously. Cervix vagina vulva were inspected with no lacerations or tears. Uterus was well contracted with minimal bleeding. Patient tolerated procedure well, immediate postop condition of mother baby both excellent. [place] Baby Gestational Age by Date: 38 gender: Female presentation: vertex position: Right Occiput Anterior Placenta delivery description: Spontaneous Cord Vessel Description: 3 Vessels, Nuchal Cord and Reduced
[2024-08-28] MEDS: OXYTOCIN 30 UNITS/NS 500 ML 30 UNITS/500 ML BAG 125 UNITS IV CONT (13:11)
--- NOTE | 2024-08-28 15:39 | PCCCNOTE ---
Per Care Coordination: Received consult for adoption and financial assistance. Met with pt. who has already chosen [facility], bilingual patient support caseworker is Amada Hatfield ([phone]). Amada is at bedside going over paperwork and questions. Pt. confirms she has three other children at home. Agreeable to adoption, signed Authorization to release to [facility] with [facility]el[facility] at discharge. Amada reports all of [facility] forms have been filled out and are completed as well. Adoptive parents, Cherelle and Oscar will be here shortly and will be staying the night with infant. Pt. is requesting to be discharged in the morning. RN aware of this and per OB likely will be okay to leave in morning. Amdaa reports she will be here in the morning as support to mom as well as available for baby discharge in the afternoon.
[2024-08-29 05:20] LABS: Hematocrit 32.7 % (37.0-47.0); Hemoglobin 10.3 g/dL (12.0-15.0)
[2024-08-29] MEDS: ACETAMINOPHEN 325 MG TABLET 650 MG PO (05:33)
[2024-08-29] MEDS: IBUPROFEN 600 MG TABLET PO (05:34)
[2024-08-29 07:25] VITALS: BP 140/78; PULSE 65; RESP 16; TEMP 36.1; O2SAT 100
--- NOTE | 2024-08-29 08:32 | P.DS_ITS ---
DS: Admitting Diagnosis Discharge Date 08/29/2024 Admitting Diagnosis DS: Discharge Diagnosis Discharge Diagnosis (1) , delivered: Code(s): O80 - Encounter for full-term uncomplicated delivery Status: Acute OB - DS: Summary OB Procedures : None OB Procedures Intrapartum: Spontaneous Vag Delivery OB Procedures: : None Peripartum Data Laceration Description: None Episiotomy description: None Time Spent with Patient Time attestation: Total time spent providing and/or coordinating discharge services: DS: Data Data Completed and Pending Pending studies at discharge: Pending at discharge 08/28/24 14:37 Surgical [PTH] Routine Labs on day of discharge: Labs from last 24 hours 08/29/24 08/28/24 04:59 06:14 Hgb 10.3 L Hct 32.7 L RPR Non-reactive Discharge Plan Discharge Discharging Clinician: Parvez Viera Patient Disposition: Home, Self-Care Activity: as tolerated and pelvic rest Diet: as tolerated Patient Instructions: Antibiotic Form Patient Language: Croatian Stand Alone Forms: General Discharge Information Follow-up/Referrals: Parvez Viera MD [Physician] - 3 Weeks Discharge Medications: New ibuprofen 600 mg Tablet 600 mg PO Q6H PRN (Reason: Cramping) Qty: 30 0RF No Action No Home Medications Date of admission: 08/28/24 05:53 Primary Care Provider: UNKNOWN,DOCTOR Admitting Provider: Parvez Viera Attending physician on admission: Parvez Viera Condition: Stable
--- NOTE | 2024-08-29 14:03 | PCCCNOTE ---
Met with pt. this morning. Pt. requesting discharge. Offered information for transportation services and she declines. Spoke with Dennise case therapist Amada who reports she will also be following with pt. and offering services and supports if needed to. pt. denies any other resources or needs. Discharging today
== END 2024-08-29 10:00 | disposition home or self-care (01) | DRG 560 ==
LOC: ANHLDR 06:10 → ANHOB2 15:08
PROVIDERS: Admitting Provider Obstetrics & Gynecology; Visit Provider Obstetrics & Gynecology
DX: O69.1XX0 Labor and delivery complicated by cord around neck, with compression, not applicable or unspecified (principal); Z3A.38 38 weeks gestation of pregnancy; Z37.0 Single live birth
CPT/HCPCS: 36415; 84112; 85014; 85018; 85025; 86592; 86703; 86850; 86900; 86901; 88307; A9270; G0432; J0290; J2590; J2795; J7120

== ENCOUNTER 2024-10-19 14:27 | Outpatient (CLI) | payer OTHER, SELFPAY ==
[2024-10-19 15:12] LABS: Hematocrit 38.5 % (37.0-47.0); Hemoglobin 12.3 g/dL (12.0-15.0); Mean Corpuscular HGB Conc 31.9 g/dl (32-36); Mean Corpuscular Hemoglobin 27.6 pg (26-34); Mean Corpuscular Volume 86.3 fl (80-100); Mean Platelet Volume 10.9 fl (7.4-10.4); Platelet Count Result 299 k/mm3 (150-375); Red Blood Count 4.46 M/mm3 (4.2-5.4)
--- OUTSIDE RECORDS SUMMARY | 2024-10-19 16:17 | XMS_ITS | Clinical Summary ---
Author Organization [facility] A [facility]ir[facility] - 2022 Address [address] [facility] 3[address] [place] [address] Phone Care Team Providers Care School Clerk Name Role Phone Unavailable Primary Care Provider Unavailabl e Allergies No known active allergies Medications ibuprofen (MOTRIN) 600 mg tablet Take 1 Tablet (600 mg) by mouth every 6 hours as needed for Pain, Mild. 20 Tablet 2 Active predniSONE (DELTASONE) 20 mg tablet Take 2 Tablets (40 mg) by mouth daily with breakfast. 12 Tablet 3 Active albuterol sulfate HFA 90 mcg/actuation aerosol inhaler Take 2 Puffs by inhalation every 6 hours as needed for Wheezing or Shortness of Breath. 8.5 Gram 3 Active Encounters Date Type Department Care Team Description 09/13/2024 External Device Data ST[facility] ABSTRACTION Provider, Abstract from Last 3 Months Social History Tobacco Use Types Packs/Day Years Used Date Smoking Tobacco: Never Smokeless Tobacco: Never Feeling Safe Answer Date Recorded Are you in a relationship wi th someone who hurts you emotionally and/or physically? No 07/22/2023 Comments No Sex and Gender Information Value Date Recorded Sex Assigned at Not on file Legal Sex Female 12:13 PM CDT Gender Identity Not on file Sexual Orientation Not on file Last Filed Vital Signs Vital Sign Reading Time Taken Comments Blood Pressure 148/98 07/22/2023 10:00 PM IMPROVEMENT MANAGER Pulse 99 07/22/2023 9:07 PM IMPROVEMENT MANAGER Temperature 36.2 C (97.1 F) 07/22/2023 7:21 PM IMPROVEMENT MANAGER Respiratory Rate 18 07/22/2023 10:00 PM IMPROVEMENT MANAGER Oxygen Saturation 99% 07/22/2023 10:00 PM IMPROVEMENT MANAGER Inhaled Oxygen Concentration - - Weight 102.1 kg (225 lb) 07/22/2023 7:21 PM IMPROVEMENT MANAGER Height 154.9 cm (5' 1 ) 07/22/2023 7:21 PM IMPROVEMENT MANAGER Body Mass Index 42.51 07/22/2023 7:21 PM IMPROVEMENT MANAGER Plan of Treatment Health Maintenance Due Date Last Done Comments DTAP/TDAP/TD VACCINES (1 - Tdap) 2014 HEPATITIS B VACCINES (1 of 3 - 19+ 3-dose series) 2014 CERVICAL CANCER SCREENING 2016 INFLUENZA VACCINE (#1) 2024 HPV VACCINES Aged Out No longer eligi ble based on patient's age to complete this topic PNEUMOCOCCAL VACCINE 0-49 YEARS Aged Out No longer eligible based on patient's age to complete this topic Insurance [facility] MEDICAID
--- OUTSIDE RECORDS SUMMARY | 2024-10-19 16:17 | XMS_ITS | Clinical Summary ---
Author Organization [facility] Address [address] [place] [address] Care Team Providers Care Multimedia Assistant Name Role Phone None, Provider MD Primary Care Provider Unavaila ble Allergies No known active allergies Medications No known medications Active Problems No known active problems Social History Tobacco Use Types Packs/Day Years Used Date Smoking Tobacco: Every Day Smokeless Tobacco: Never Alcohol Use Standard Drinks/Week Comments Never 0 (1 standard drink = 0.6 oz pur e alcohol) Comments No Sex and Gender Information Value Date Recorded Sex Assigned at Not on file Legal Sex Female 11:05 PM LEVER MILLER Gender Identity Female 10/17/2021 8:38 AM LEVER MILLER Sexual Orientation Not on file Last Filed Vital Signs Vital Sign Reading Time Taken Comments Blood Pressure 157/99 10/16/2021 7:51 PM LEVER MILLER Pulse 112 10/16/2021 7:51 PM LEVER MILLER Temperature 37.1 C (98.7 F) 10/16/2021 7:51 PM LEVER MILLER Respiratory Rate 22 10/16/2021 7:51 PM LEVER MILLER Oxygen Saturation 100% 10/16/2021 7:51 PM LEVER MILLER Inhaled Oxygen Concentration - - Weight 102.1 kg (225 lb) 10/16/2021 7:51 PM LEVER MILLER Height 154.9 cm (5' 1 ) 10/16/2021 7:51 PM LEVER MILLER Body Mass Index 42.51 10/16/2021 7:51 PM LEVER MILLER Plan of Treatment Health Maintenance Due Date Last Done Comments Cervical Cancer Screening Pap Smear (Age 21 to 29) Every 3 Years 1995 Cervical Cancer Screening 1995 Annual Physical 1998 Pneumococcal Vaccine: Pediatrics (0 to 5 Years) and At-Risk Patients (6 to 64 Years) (1 of 2 - PCV) 2001 HPV Vaccines (2 - 2-dose series) 10/02/2010 04/01/2010 Hepatitis C 2013 COVID-19 Vaccine ( - 2023- season) 2024 DTaP, Tdap and Td Vaccines (5 - Td or Tdap) 05/13/2024 05/13/2014, 04/01/2010, 03/25/2000, Additional history exists Influenza Adult (#1) 2024 05/13/2014 Hepatitis B Vaccines Completed 01/17/1997, 1995, 1995 Meningococcal Vaccine Aged Out 04/01/2010 No ruthann martine eligible based on patient's age to complete this topic Meningococcal B Vaccine Aged Out No l onger eligible based on patient's age to complete this topic RSV Immunizations Under 20 Months Aged Out No longer eligible based on patient's age to complete this topic Insurance Care Teams Multimedia Assistant Relationship Specialty Start Date End Date None, Provider, PCP - General 10/16/21
--- OUTSIDE RECORDS SUMMARY | 2024-10-19 16:17 | XMS_ITS | Encounter Summary ---
Author Organization [facility] Address [address] [place] [id number] Care Team Providers Care Privacy Manager Name Role Phone None, Provider Primary Care Provider Unavaila ble Encounter Details Date Type Department Care Team (Late st Contact Info) Description 01/22/2019 Abstract SFL CONVERSION [address] [place] [address] , Generic Conversion, Social History Tobacco Use Types Packs/Day Years Used Date Smoking Tobacco: Never Assessed Comments Unknown Sex and Gender Information Value Date Recorded Sex Assigned at Not on file Legal Sex Female 11:05 PM TRIP FOLLOWER Gender Identity Female 10/17/2021 8:38 AM TRIP FOLLOWER Sexual Orientation Not on file documented as of this encounter Plan of Treatment Not on file documented as of this encounter Visit Diagnoses Not on filedocumented in this encounter Care Teams Privacy Manager Relationship Specialty Start Date End Date None, Provider, PCP - General 10/16/21 documented as of this encounter
--- OUTSIDE RECORDS SUMMARY | 2024-10-19 16:17 | XMS_ITS | Continuity of Care Document ---
Author Organization [facility] Address [address] [place] [address] Phone Care Team Providers Care Medical Staffing Coordinator Name Role Phone Unavailable Unavailable Unavailable Advance Directives Directive Yes / No Effective Date File Name No Information Encounters Encounter Description Practice Location Reason(s) For Visit Diagnoses Date Provider Providers Copied on Encounter [facility], [address] [facility], [place], [place], [id number], tel:[phone] [facility] No Information 7 No Information Referring Provider: CARMEN GOMEZ, [address] [place] [address],[place], [address]. tel:[phone] Family History Family Member Type Diagnosis Age At Onset No Information Payers Payer name Insurance type Covered democrat ID Authoriza tibrian(s) [facility] IN[facility]MN[facility] [id number] Social History Type Description Quantity Date Captured Comments Sex Female Smoking Status No Information Chief Complaint And Reason For Visit No Information History Of Present Illness Encounter Date Complaint History Of Prese nt Illness No Information Instructions Date Instruction Additional Infor mation No Information Assessments Type Assessment Date No Information
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
== END 2024-10-19 14:28 | disposition home or self-care (01) ==
LOC: ANHSURGERY 14:33
PROVIDERS: Visit Provider Obstetrics & Gynecology
DX: Z30.2 Encounter for sterilization (principal)
CPT/HCPCS: 36415; 85027

== ENCOUNTER 2024-10-27 00:46 | Day surgery (SDC) | payer OTHER, SELFPAY ==
[2024-10-14 13:25] VITALS: BMI 35.2
--- NOTE | 2024-10-14 13:51 | PC.NURSE ---
Report to the Outpatient Waiting Room, entrance under the green pavilion located off [facility], at time 6:15AM on date 10/27/2024. Planned Procedure Time: 8:15AM.? Time changes happen often and if your time is changed the preop area will call you the afternoon before. - You and your visitor will be asked to self-screen and do not enter if you have any COVID symptoms. Please call surgeon if you need to reschedule. - A mask is optional within the hospital at this time. Patients may have clear liquids (water, carbonated beverages, clear teas, apple juice) until 3 hours prior to surgery with a maximum of 20 ounces. - No food from midnight until time of surgery and no smoking, or chewing tobacco (or any form of nicotine). No chewing gum, candy or mints. Take only the following medications with a SIP of water on the morning of surgery: N/A DO NOT STOP ANY OF YOUR OTHER PRESCRIPTION MEDICATIONS PRIOR TO SURGERY EXCEPT THE FOLLOWING Hold all vitamins and supplements for 3 days per anesthesiologist. Medications to discontinue per physician: N/A Please no make-up, nail tajik, hairspray, perfume, deodorant, or body powder the day of surgery.? No jewelry (including any body piercings) or valuables the day of surgery, leave them at home.? Please take a shower or bath the night before, or the morning of, surgery with an antibacterial soap.? Wear comfortable, loose fitting clothing.? Children are encouraged to wear pajamas. - Jewelry must be removed prior to entering the operating room.? Rings and piercings that are not removed may be cut off. - The hospital will not accept responsibility for valuables.? - Please leave all valuables, including medications, at home the day of surgery. If you are going home after surgery, a licensed tow truck driver must drive you home.? - NO public transportation without another adult if you receive anesthesia. - We recommend that an adult stay with you for 24 hours following discharge. - We also recommend that you do not drive, make important decision, drink alcoholic beverages, or take any drugs that were not prescribed by your health care provider for at least 24 hours after your discharge time. Follow any additional instructions given to you from your surgeon. Telephone instructions given to patient and asked if any additional questions and then verbalized understanding. Patient advised to call surgeon office or pre surgery nurse liaison [phone] if any additional questions.
--- NOTE | 2024-10-25 10:49 | PM.IMHP ---
H&P: HPI History of Present Illness Date/Time: 10/25/24 10:49 29-year-old female 004 presents for bilateral salpingectomy. We have discussed nonsurgical and nonpermanent methods of contraception which she declines. We have also discussed the permanence failure rate increased risk of ectopic and regret with again good understanding and consent obtained. Chief Complaint: Desires sterilization Review of Systems Review of Systems: All systems reviewed & are unremarkable except as noted in HPI and below PMFSH Past Medical History Medical History Seizures Scoliosis Hypertension Family History Family History Father Hypertension Family history of seizure disorder Other Cerebrovascular accident Diabetes mellitus Social History Social History Years smoked: 4 Smoking status: Current every day smoker Tobacco type: cigarettes Second hand tobacco smoke exposure: Yes Alcohol intake: former Substance use: current Substance use type: marijuana Other substance usage details: 1 time a week Last use: 10/12/2024 Do You Feel Safe in your Home?: Yes Lack of Transportation: YES Lack of Food: Sometimes True Current Housing: I Have Housing Concerned About Future Housing: No Difficulty Paying Gas/Electric Bills: No Difficulty Paying for Meds: No Currently Unemployed: No Education: High School Diploma/GED Difficulty w/ Childcare or Family Care: No Living arrangements: with family Additional living arrangements comments: single Occupation/Education: other 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 Gender identity (if verbalized by the patient): Female Sexual Orientation (if Verbalized by the Patient): Straight or Heterosexual Spiritual care concerns: No Meds Home Medications and Allergies Home Medications ?Medication ?Instructions ?Recorded ?Confirmed ?Type No Home Medications 08/23/24 10/14/24 History Allergies Allergy/AdvReac Type Severity Reaction Status Date / Time No Known Allergies Allergy Verified 10/14/24 13:24 Exam Const: General: cooperative and healthy appearing Resp: Effort & Inspection: normal respiratory effort Auscultation: clear to auscultation bilaterally Cardio: Rate: regular rate Rhythm: regular rhythm GI: Inspection: normal to inspection Auscultation: normal bowel sounds : External Female Exam: normal external appearance Speculum Exam - Vagina: normal appearance of the vagina Speculum Exam - Cervix: normal appearance of the cervix Bimanual exam- vagina & uterus: normal bimanual exam Bimanual Exam- Adnexa, other: normal adnexae Assessment and Plan Assessment and plan (1) Encounter for female sterilization procedure: Code(s): Z30.2 - Encounter for sterilization Status: Acute Assessment and Plan: proceed with laparoscopic bilateral salpingectomy
[2024-10-27] VITALS (11 sets, daily range): BP systolic 103–128; BP diastolic 57–76; PULSE 54–88; RESP 12–30; TEMP 36.4–36.6; O2SAT 92–100
--- OUTSIDE RECORDS SUMMARY | 2024-10-27 00:49 | XMS_ITS | Clinical Summary ---
Author Organization [facility] - 2022 Address [address] [facility] [address] [place] [address] Phone Care Team Providers Care Forest Fire Management Officer Name Role Phone Unavailable Primary Care Provider [...] Comments Blood Pressure 148/98 07/22/2023 10:00 PM CAPTAIN WAITER/WAITRESS Pulse 99 07/22/2023 9:07 PM CAPTAIN WAITER/WAITRESS Temperature 36.2 C (97.1 F) 07/22/2023 7:21 PM CAPTAIN WAITER/WAITRESS Respiratory Rate 18 07/22/2023 10:00 PM CAPTAIN WAITER/WAITRESS Oxygen Saturation 99% 07/22/2023 10:00 PM CAPTAIN WAITER/WAITRESS Inhaled Oxygen Concentration - - Weight 102.1 kg (225 lb) 07/22/2023 7:21 PM CAPTAIN WAITER/WAITRESS Height 154.9 cm (5' 1 ) 07/22/2023 7:21 PM CAPTAIN WAITER/WAITRESS Body Mass Index 42.51 07/22/2023 7:21 PM CAPTAIN WAITER/WAITRESS Plan of Treatment Health Maintenance Due Date [...] patient's age to complete this topic Insurance [facility] MEDICAID
--- OUTSIDE RECORDS SUMMARY | 2024-10-27 00:49 | XMS_ITS | Clinical Summary ---
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
--- OUTSIDE RECORDS SUMMARY | 2024-10-27 00:49 | XMS_ITS | Encounter Summary ---
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
--- OUTSIDE RECORDS SUMMARY | 2024-10-27 00:49 | XMS_ITS | Clinical Summary ---
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 Gender Identity Female 10/17/2021 8:38 AM CERTIFIED HEARING INSTRUMENT DISPENSER Sexual Orientation Not on file Last Filed Vital Signs Vital Sign Reading Time Taken Comments Blood Pressure 157/99 10/16/2021 7:51 PM CERTIFIED HEARING INSTRUMENT DISPENSER Pulse 112 10/16/2021 7:51 PM CERTIFIED HEARING INSTRUMENT DISPENSER Temperature 37.1 C (98.7 F) 10/16/2021 7:51 PM CERTIFIED HEARING INSTRUMENT DISPENSER Respiratory Rate 22 10/16/2021 7:51 PM CERTIFIED HEARING INSTRUMENT DISPENSER Oxygen Saturation 100% 10/16/2021 7:51 PM CERTIFIED HEARING INSTRUMENT DISPENSER Inhaled Oxygen Concentration - - Weight 102.1 kg (225 lb) 10/16/2021 7:51 PM CERTIFIED HEARING INSTRUMENT DISPENSER Height 154.9 cm (5' 1 ) 10/16/2021 7:51 PM CERTIFIED HEARING INSTRUMENT DISPENSER Body Mass Index 42.51 10/16/2021 7:51 PM CERTIFIED HEARING INSTRUMENT DISPENSER Plan of Treatment Health Maintenance Due Date [...] to complete this topic Insurance Care Teams Wound Care Technician Relationship Specialty Start Date End Date None, Provider, PCP - General 10/16/21
--- OUTSIDE RECORDS SUMMARY | 2024-10-27 00:49 | XMS_ITS | Continuity of Care Document ---
Author Organization [facility] Address [address] [place] [address] Phone Care Team Providers Care Industrial Commercial Groundskeeper Name Role Phone Unavailable Unavailable Unavailable Advance Directives Directive Yes / No Effective Date File Name No Information Encounters Encounter Description Practice Location Reason(s) For Visit Diagnoses Date Provider Providers Copied on Encounter [facility], [address] [facility], [place], [place], [id number], tel:[phone] [facility] No Information 7 No Information Referring Provider: CARMEN GOMEZ, [address] [place] [address],[place], [address]. tel:[phone] Family History Family Member Type Diagnosis Age At Onset No Information Payers Payer name Insurance type Covered green party ID Authoriza tibrian(s) [facility] INDEMNITY [id number] Social History Type Description Quantity Date Captured Comments Sex Female Smoking Status No Information Chief Complaint And Reason For Visit No Information History Of Present Illness Encounter Date Complaint History Of Prese nt Illness No Information Instructions Date Instruction Additional Infor mation No Information Assessments Type Assessment Date No Information
[2024-10-27] MEDS: KETOROLAC 15 MG/ML VIAL (*BKC) IV PUSH (06:25)
[2024-10-27] MEDS: ACETAMINOPHEN 500 MG TABLET 1000 MG PO (06:25)
[2024-10-27] MEDS: LACTATED RINGERS 1,000 ML 30 ML IV CONT ×2 (06:30→08:53)
[2024-10-27 06:38] LABS: BEDSIDEPREGUCG Negative (Negative)
--- NOTE | 2024-10-27 06:42 | WPDANESEPPF ---
Anes - Initial Pre Proc Eval Procedure: Operation Date: 10/27/24 07:30 Proposed Procedures p Laparoscopic Bilateral Salpingectomy - Parvez Viera MD Date/Time: 10/27/24 06:42 Surgeon: Parvez Viera MD Pre Op Diagnosis: desired sterilization Patient Data Age: 29 Gender: F Height: 1.55 m Weight: 83.8 kg Last Vital Signs Temp 36.4 C L 10/27/24 06:05 Pulse 87 10/27/24 06:05 Resp 18 10/27/24 06:05 BP 125/76 10/27/24 06:05 Pulse Ox 98 10/27/24 06:05 O2 Del Method Room Air 10/27/24 06:05 Allergies Allergy/AdvReac Type Severity Reaction Status Date / Time No Known Allergies Allergy Verified 10/27/24 06:10 Home Medications ?Medication ?Instructions ?Recorded ?Confirmed ?Type No Home Medications 08/23/24 10/14/24 History Laboratory Tests 10/27/24 06:37 POC Urine HCG, Qual Negative (Negative) Patient hx anesthesia problems: none Family hx anesthesia problems: none Results Review: All pre-operative results and documents have been reviewed as part of the pre-operative evaluation. [facility]LY [facility], [facility] Past Medical History Medical History (Updated 10/27/24 @ 06:47 by Remigio Cedeño MD) Seizures no workup, no meds, 7 times total during stress Scoliosis Hypertension Family History Family History Father Hypertension Family history of seizure disorder Other Cerebrovascular accident Diabetes mellitus Social History Social History Years smoked: 4 Smoking status: Current every day smoker Tobacco type: cigarettes Second hand tobacco smoke exposure: Yes Alcohol intake: former Substance use: current Substance use type: marijuana Other substance usage details: 1 time a week Last use: 10/12/2024 Do You Feel Safe in your Home?: Yes Lack of Transportation: YES Lack of Food: Sometimes True Current Housing: I Have Housing Concerned About Future Housing: No Difficulty Paying Gas/Electric Bills: No Difficulty Paying for Meds: No Currently Unemployed: No Education: High School Diploma/GED Difficulty w/ Childcare or Family Care: No Living arrangements: with family Additional living arrangements comments: single Occupation/Education: other 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 Informed Consent: The patient's anesthetic plan and its attendant risks and benefits were discussed with the patient/family/POA. Questions were solicited and answers provided to the satisfaction of the patient/family/POA.
--- NOTE | 2024-10-27 06:53 | WPDHPUPDATE1 ---
History and Physical Update Update Date/Time: 10/27/24 06:53 History and Physical has been reviewed, including an updated exam of the patient. There are NO changes in the patient's condition. Risks, benefits, and alternatives have been discussed and questions answered. Patient agrees to proceed with procedure.
[2024-10-27] MEDS: SCOPOLAMINE 1 MG PATCH 1 PATCH TRANSDERM (07:13)
--- NOTE | 2024-10-27 08:14 | W.PM.PROC2 ---
Procedure Note - Detailed Date of Procedure 10/27/24 Pre-op Diagnosis desired sterilization Post-op Diagnosis Same Procedure Performed 1. Laparoscopic bilateral salpingectomy Surgeon Parvez Viera MD Anesthesia General Findings 1. Tubes hyperemic with inflammatory exudate noted. 2. Thorough evaluation of uterus tubes ovaries, pelvis and GI tract revealed no evidence of abscess or other significant abnormality. Description of Procedure Patient was prepped and draped in usual manner for this procedure. Cervical instruments were placed for uterine mobility throughout the case. Abdominal trocar sites were then made under direct visualization patient was placed in Trendelenburg position. The revaluation as noted above revealed no abnormalities other than tubes hyperemic as well as increase exam today in the cul-de-sac. Specimen was obtained for culture and sensitivity. Mesial salpinx was cauterized and cut bilaterally and tubes removed without difficulty through a port in the right lower quadrant. Gas was allowed to escape, trocars removed and incisions were approximated using 4-0 Monocryl. Patient was sent to recovery room in stable condition. Patient will be placed on doxycycline pending culture results. Estimated Blood Loss 10 Drains No Packing No Pathology Yes Complications No immediate complications Condition Stable Disposition PACU [facility] Billing Surgery - Charge Forward: Surgery Billing
[2024-10-27] MEDS: ONDANSETRON INJ 4 MG/2 ML VIAL IV PUSH (08:19)
[2024-10-27] MEDS: fentaNYL CITRATE INJ (*CRX) 100 MCG/2 ML VIAL 25 MCG IV PUSH ×2 (08:30→08:32)
--- NOTE | 2024-10-27 08:34 | SUR.PHASEI ---
0832: Simple mask removed.
[2024-10-27] MEDS: oxyCODONE HCL (*CRX) 5 MG TAB IR PO (09:27)
--- NOTE | 2024-10-27 10:39 | SUR.PHASEII ---
Patient is awaiting ride home - Bryan (significant other) is at work. Planning to pick her up at noon.
== END 2024-10-27 11:50 | disposition home or self-care (01) ==
PROVIDERS: Visit Provider Obstetrics & Gynecology
PROC: (CPT 49320; principal; 2024-10-27 07:30)
DX: Z30.2 Encounter for sterilization (principal); N70.11 Chronic salpingitis; D19.1 Benign neoplasm of mesothelial tissue of peritoneum; G89.18 Other acute postprocedural pain; I10 Essential (primary) hypertension; R56.9 Unspecified convulsions; M41.9 Scoliosis, unspecified; F17.210 Nicotine dependence, cigarettes, uncomplicated; F12.90 Cannabis use, unspecified, uncomplicated; E66.9 Obesity, unspecified; Z68.34 Body mass index [BMI] 34.0-34.9, adult; Z82.49 Family history of ischemic heart disease and other diseases of the circulatory system
CPT/HCPCS: 58661; 88104; 88108; 88302; 88305; A9270; J1100; J1885; J2003; J2250; J2405; J2704; J3010; J7030; J7120; Q9968